=== PATIENT | female | born 1970 | race Hispanic/Latino ===

== ENCOUNTER → 2016-07-09 | Outpatient (CLI) | payer BC ==
--- NOTE | 2016-07-09 10:19 | US ---
EXAMINATION: Right upper quadrant ultrasound HISTORY: Pain COMPARISON: None TECHNIQUE: Grayscale and color Doppler images obtained of the right upper quadrant FINDINGS: The liver is moderately increased in generalized echotexture without a focal hepatic mass. The pancreas is not well characterized. The gallbladder wall thickness is mildly increased however the gallbladder is decompressed. No shadowing stones or pericholecystic fluid. The common bile duct measures 2 mm. The right kidney measures 12.8 cm [id number] without evidence of hydronephrosis. So nographic Palafox sign is not reported. IMPRESSION: 1. At least moderate fatty infiltration of the liver. 2. Decompressed gallbladder without evidence of gallstones.
== END ==
LOC: MW.US 08:37
PROVIDERS: ATTEND Surgery
DX: R10.9 Unspecified abdominal pain (principal); K76.0 Fatty (change of) liver, not elsewhere classified
CPT/HCPCS: 76705; 76705-26

== ENCOUNTER 2016-07-17 06:20 | Day surgery (SDC) | payer BC ==
[~2016-07-17 06:20] MED LIST: Lactated Ringers 1,000 ML IV SCH
--- NOTE | 2016-07-17 07:25 | PCM.PREANE ---
Preanesthetic Assessment - Anesthesia/Transfusion/Family Hx Anesthesia History: Prior Anesthesia Without Reaction Family History of Anesthesia Reaction: No Transfusion History: No Prior Transfusion(s) Intubation History: Unknown - Review of Systems General: No Symptoms Pulmonary: No Symptoms Cardiovascular: Other (HTN - treated) Gastrointestinal: Abdominal pain (intermittent), Melena, Other (Hx of H.Pylori) Neurological: Headache (migraine), Other (vertigo occasionally) Other: Reports: Diabetes (Type II, on metformin) - Physical Assessment NPO Status Date: 07/16/16 NPO Status Time: 23:00 O2 Sat by Pulse Oximetry: 97 Respiratory Rate: 84 Vital Signs: Last Vital Signs Temp 97.5 F 07/17/16 06:55 Pulse 84 07/17/16 06:55 Resp 84 H 07/17/16 06:55 BP 144/78 H 07/17/16 06:55 Pulse Ox 97 07/17/16 06:55 Height: 5 ft 1 in Weight: 200 lb ASA Class: 3 Mental Status: Alert & Oriented x3 Dentition: Reports: Normal Dentition, Dentures (upper) Thyro-Mental Finger Breadths: 3 Mouth Opening Finger Breadths: 3 ROM/Head Extension: Full Lungs: Clear to auscultation, Normal respiratory effort Cardiovascular: Regular Rate, Regular Rhythm, No Murmurs - Lab Values: Laboratory Last Values Urine HCG, Qual NEGATIVE (NEGATIVE) 07/17/16 06:30 - Allergies Allergies/Adverse Reactions: Allergies Allergy/AdvReac Type Severity Reaction Status Date / Time No Known Allergies Allergy Verified 01/14/15 08:03 - Blood Blood Available: No Product(s) Available: None - Anesthesia Plan Pre-Op Medication Ordered: None - Acknowledgements Anesthesia Type Planned: MAC Pt an Appropriate Candidate for the Planned Anesthesia: Yes Alternatives and Risks of Anesthesia Discussed w Pt/Guardian: Yes Pt/Guardian Understands and Agrees with Anesthesia Plan: Yes PreAnesthesia Questionnaire HEENT History: Reports: Other (see below) Other HEENT History: top denture, bottom partial Cardiovascular History: Reports: High cholesterol, Hypertension Gastrointestinal History: Reports: GERD Musculoskeletal History: Reports: Arthritis Neurological History: Reports: Migraines Endocrine/Metabolic History: Reports: Diabetes, type II, Obesity/BMI 30+ - Past Surgical History Head Surgeries/Procedures: Reports: None Musculoskeletal Surgical History: Reports: Other (see below) Other Musculoskeletal Surgeries/Procedures:: knee surgery - SUBSTANCE USE Smoking Status *Q: Current Every Day Smoker Tobacco Use Within Last Twelve Months: Cigarettes Second Hand Smoke Exposure: Yes Days Per Week of Alcohol Use: 7 Number of Drinks Per Day: 12 Total Drinks Per Week: 84 Recreational Drug Use History: No - HOME MEDS Home Medications: Home Meds metFORMIN [Glucophage] 500 mg PO ACBREAKFAST 01/04/14 [History] atorvaSTATin [Lipitor] 20 mg PO BEDTIME 01/14/15 [History] Acetaminophen 1 tab PO ASDIRECTED PRN 07/13/16 [History] Ibuprofen 400 mg PO ASDIRECTED PRN 07/13/16 [History] Meclizine HCl 25 mg PO ASDIRECTED PRN 07/13/16 [History] [place]-3S/DHA/Epa/Fish Oil [[place]-3 Fish Oil 1,000 mg Sfgl] 1,000 mg PO DAILY 07/25 [History] Omeprazole 40 mg PO DAILY 07/13/16 [History] Acetaminophen/Butalbital/Caff [Fioricet 325-50-40 MG] 1 tab PO ASDIRECTED PRN [History] Losartan Potassium 100 mg PO DAILY 07/16/16 [History] metFORMIN HCl [Metformin HCl ER] 1,000 mg PO ACDINNER 07/16/16 [History] - CURRENT (IN HOUSE) MEDS Current Meds: Current Medications Lactated Ringer's (Ringers, Lactated) 1,000 mls @ 125 mls/hr IV ASDIRECTED RAY Last Admin: 07/17/16 06:54 Dose: 125 mls/hr
[2016-07-17] MEDS ORDERED: Midazolam 1 MG/ML 2 ML SDV ONE (07:28)
[2016-07-17] MEDS ORDERED: fentaNYL 100 MCG/2 ML SDV ONE (07:28)
[2016-07-17] MEDS ORDERED: Propofol 200 MG/20 ML SDV ONE (07:28)
[2016-07-17] MEDS ORDERED: Lidocaine 2% 5 ML SDV ONE (07:28)
--- NOTE | 2016-07-17 08:26 | PCM.OPNOTE ---
- General Post-Op/Procedure Note Date of Surgery/Procedure: 07/17/16 Operative Procedure(s): egd w bx. colonoscopy Findings: see dict [id number] Pre Op Diagnosis: gib Post-Op Diagnosis: gastritis and diverticulosis Anesthesia Technique: Moderate sedation Primary Surgeon: William Blevins Pathology: sent Complications: None Condition: Good
--- NOTE | 2016-07-17 09:01 | PCM.POSTAN ---
POST ANESTHESIA ASSESSMENT - MENTAL STATUS Mental Status: alert, oriented - RESPIRATORY Respiratory Status: respiratory rate WNL, airway patent, O2 saturation stable - CARDIOVASCULAR CV Status: pulse rate WNL, blood pressure stable - GASTROINTESTINAL GI Status: no symptoms - POST OP HYDRATION Hydration Status: adequate & stable - OBSERVATIONS Free Text/Narrative:: no anesthesia problems
[2016-07-17 10:00] VITALS: BP 106/52
--- NOTE | 2016-07-17 15:56 | OR ---
SURGEON: William Blevins MD DATE OF PROCEDURE: 07/17/2016 PREOPERATIVE DIAGNOSIS: Gastrointestinal bleeding. POSTOPERATIVE DIAGNOSES: EGD diagnosis is gastritis and colonoscopy diagnosis is diverticulosis. PROCEDURES PERFORMED: 1. EGD with biopsy. 2. Colonoscopy. DESCRIPTION OF PROCEDURE: EGD: The patient was taken to the endoscopy room, and with the DIE CASTING MACHINE MAINTAINER, Diprivan was administered. A well-lubricated EGD scope was gently inserted through the oropharynx, down the esophagus, passing through the gastroesophageal junction, into the stomach. The mucosa was examined upon the passage. Any etiology will be noted. Once in the stomach, we continued to advance to the distal antrum, passed through the pylorus into the second portion of the duodenum. Again, the mucosa was examined for any abnormality and etiology. The scope was then retrieved back to the stomach and then retroflexed to look at the fundus of the stomach. If a biopsy was indicated, we will biopsy the antrum, body, and gastroesophageal junction. The air will be sucked out while the scope is retrieved to reduce the patient's discomfort. The patient tolerated the procedure well. There were no intraoperative complications. Dr. Blevins was present through the whole procedure. Prior to surgery, a time-out had been called, the patient identified, procedure identified and antibiotic administered. Colonoscopy: The patient was taken to the endoscopy room. A time out was called, patient identified, and procedure identified. Diprivan was then administrated. Patient went from awake to sleep, hearing doctor talking or door closing is normal. Perineum inspection and digital examination were then performed. A well-lubricated colonoscope was gently inserted through the rectum, advanced past the rectosigmoid junction, the descending colon, splenic flexure, transverse colon, hepatic flexure, ascending colon, arrived to the cecum. Cecum was identified as dictated in the finding. Then the scope was carefully withdrawn while attention was paid to the mucosal surface for any abnormality. Air will be sucked out during the scope withdrawal. At the rectum, retroflexed to examine any rectal diseases, fistula or hemorrhoids. Patient tolerated procedure well. There were no intraoperative complications, and Dr. Blevins was present throughout the whole procedure. FINDINGS: EGD Findings: The patient was easily sedated with DIE CASTING MACHINE MAINTAINER and Diprivan. The patient was soundly snoring. Oropharynx and proximal esophagus were free of disease, stricture, or inflammation. Proximal esophagus has a ring-like structure, has Schatzki ring observed with salmon-color change consistent with acid reflux. Stomach rugae is normal in appearance. There were no blood, bile, or food particle. Antrum was a little bit inflamed and duodenum was grossly normal in appearance. The scope was retrieved back to the stomach. Retroflex look at the fundus of stomach, there was no hiatal hernia. Biopsy done at antrum, body, and GE junction at 30, and suck out of air while scope pulling out. Colonoscopy Findings: The patient was easily sedated with DIE CASTING MACHINE MAINTAINER and Diprivan. The patient was soundly snoring. The patient's bowel prep was large amount of liquid stool compromising the study and no semi-formed stool. Colon was rather straight forward. Cecum indicated by ileocecal fold and one-to-one indentation. Light emittance was not observed. Appendiceal orifice was observed. Mucosa was examined upon scope pulling out with constant irrigation because of the bowel prep. The patient has mild diverticulosis in the left colon. No signs or symptoms of diverticulitis. Inflammation, stricture, ulceration, bleeding, mass growth, polyp, AV malformation, none of these observed. The patient has mild internal hemorrhoid with a pretty significant external hemorrhoid. No fissure or other rectal diseases observed. The patient will benefit from repeat colonoscopy 10 years from today or if clinically indicated otherwise. As always, thank you for the kind referral. ROCAEL SEE /[id number]
== END 2016-07-17 09:10 | disposition home or self-care (01) ==
LOC: MW.SDS 06:20
PROVIDERS: ATTEND Surgery
DX: K29.51 Unspecified chronic gastritis with bleeding (principal); A04.8 Other specified bacterial intestinal infections; K57.30 Diverticulosis of large intestine without perforation or abscess without bleeding; K21.9 Gastro-esophageal reflux disease without esophagitis; I10 Essential (primary) hypertension; E66.9 Obesity, unspecified; E11.9 Type 2 diabetes mellitus without complications; G43.009 Migraine without aura, not intractable, without status migrainosus; F10.10 Alcohol abuse, uncomplicated; M19.90 Unspecified osteoarthritis, unspecified site; F17.210 Nicotine dependence, cigarettes, uncomplicated; Z79.84 Long term (current) use of oral hypoglycemic drugs; Z79.899 Other long term (current) drug therapy; Z98.890 Other specified postprocedural states; Z82.49 Family history of ischemic heart disease and other diseases of the circulatory system
CPT/HCPCS: 43239; 45378; 81025; 82962; 88305; 88312; J2250; J3010; J7120; 00740; J2704

== ENCOUNTER 2016-11-26 06:13 | Observation (INO) | payer BC ==
[2016-11-26] MEDS ORDERED: Aspirin 81 MG Tab.Chew PO ONE (06:22)
--- NOTE | 2016-11-26 06:23 | EDM.PDOC ---
ED HPI GENERAL MEDICAL PROBLEM - General Chief Complaint: Chest Pain Stated Complaint: CHEST PAIN Time Seen by Provider: 11/26/16 06:14 - History of Present Illness INITIAL COMMENTS - FREE TEXT/NARRATIVE: HISTORY AND PHYSICAL: History of present illness: Patient 46-year-old female with history of diabetes hypertension who is a smoker sensory concern chest pain that awoke her from sleep last approximate 3 minutes and was associated with palpitations and diaphoresis upon arrival here she is asymptomatic she denies trauma or other concern Review of systems: As per history of present illness and below otherwise all systems reviewed and negative. Past medical history: As per history of present illness and as reviewed below otherwise noncontributory. Surgical history: As per history of present illness and as reviewed below otherwise noncontributory. Social history: No reported history of drug or alcohol abuse. Family history: As per history of present illness and as reviewed below otherwise noncontributory. Physical exam: HEENT: Atraumatic, normocephalic, pupils reactive, negative for conjunctival pallor or scleral icterus, mucous membranes moist, throat clear, neck supple, nontender, trachea midline. Lungs: Clear to auscultation, breath sounds equal bilaterally, chest nontender. Heart: S1S2, regular, negative for clicks, rubs, or JVD. Abdomen: Soft, nondistended, nontender. Negative for masses or hepatosplenomegaly. Negative for costovertebral tenderness. Pelvis: Stable nontender. Genitourinary: Deferred. Rectal: Deferred. Extremities: Atraumatic, negative for cords or calf pain. Neurovascular unremarkable. Neuro: Awake, alert, oriented. Cranial nerves II through XII unremarkable. Cerebellum unremarkable. Motor and sensory unremarkable throughout. Exam nonfocal. Diagnostics: CBC CMP troponin PT/INR chest x-ray EKG Therapeutics: IV O2 monitor aspirin 324 mg by mouth Impression: #1 chest pain #2 history diabetes #3 history of hypertension Definitive disposition and diagnosis as appropriate pending reevaluation and review of above. - Related Data Allergies Allergy/AdvReac Type Severity Reaction Status Date / Time No Known Allergies Allergy Verified 11/26/16 06:20 Home Meds: Home Meds metFORMIN [Glucophage] 500 mg PO BID 01/04/14 [History] atorvaSTATin [Lipitor] 20 mg PO BEDTIME 01/14/15 [History] Ibuprofen 400 mg PO ASDIRECTED PRN 07/13/16 [History] Meclizine HCl 25 mg PO ASDIRECTED PRN 07/13/16 [History] [place]-3S/DHA/Epa/Fish Oil [[place]-3 Fish Oil 1,000 mg Sfgl] 1,000 mg PO DAILY 07/25 [History] Omeprazole 40 mg PO DAILY 07/13/16 [History] Acetaminophen/Butalbital/Caff [Fioricet 325-50-40 MG] 1 tab PO ASDIRECTED PRN [History] Losartan Potassium 100 mg PO DAILY 07/16/16 [History] Past Medical History HEENT History: Reports: Other (See Below) Other HEENT History: top denture, bottom partial Cardiovascular History: Reports: High Cholesterol, Hypertension Gastrointestinal History: Reports: GERD Musculoskeletal History: Reports: Arthritis Neurological History: Reports: Migraines Endocrine/Metabolic History: Reports: Diabetes, Type II, Obesity/BMI 30+ - Past Surgical History Musculoskeletal Surgical History: Reports: Other (See Below) Social & Family History - Tobacco Use Smoking Status *Q: Current Some Day Smoker Years of Tobacco use: 10 Packs/Tins Daily: 1 Used Tobacco, but Quit: No Month Tobacco Last Used: smokes 3 cigarettes per day Second Hand Smoke Exposure: Yes - Alcohol Use Days Per Week of Alcohol Use: 7 Number of Drinks Per Day: 12 Total Drinks Per Week: 84 - Recreational Drug Use Recreational Drug Use: No ED ROS GENERAL - Review of Systems Review Of Systems: ROS reveals no pertinent complaints other than HPI. ED EXAM, GENERAL - Physical Exam Exam: See Below (See dictation) Course - Vital Signs Last Recorded V/S: Last Vital Signs Temp 36 C 11/26/16 06:21 Pulse 95 11/26/16 06:21 Resp 18 11/26/16 06:21 BP 145/95 H 11/26/16 06:21 Pulse Ox 96 11/26/16 06:21 - Orders/Labs/Meds Orders: Active Orders 24 hr Category Date Time Status EKG Documentation Completion [RC] STAT Care 11/26/16 06:22 Active Chest 1V Frontal [CR] Stat Exams 11/26/16 06:22 Taken Labs: Laboratory Tests 11/26/16 11/26/16 11/26/16 Range/Units 06:25 06:25 06:25 WBC 12.62 H (4.0-11.0) K/uL RBC 4.66 (4.30-5.90) M/uL Hgb 13.6 (12.0-16.0) g/dL Hct 40.4 (36.0-46.0) % MCV 86.7 (80.0-98.0) fL MCH 29.2 (27.0-32.0) pg MCHC 33.7 (31.0-37.0) g/dL RDW Std Deviation 46.2 (28.0-62.0) fl RDW Coeff of Ludwig 15 (11.0-15.0) % Plt Count 296 (150-400) K/uL MPV 10.40 (7.40-12.00) fL Neut % (Auto) 56.7 (48.0-80.0) % Lymph % (Auto) 27.4 (16.0-40.0) % Ralls % (Auto) 10.2 (0.0-15.0) % Eos % (Auto) 5.4 (0.0-7.0) % Baso % (Auto) 0.3 (0.0-1.5) % Neut # (Auto) 7.2 H (1.4-5.7) K/uL Lymph # (Auto) 3.5 H (0.6-2.4) K/uL Ralls # (Auto) 1.3 H (0.0-0.8) K/uL Eos # (Auto) 0.7 (0.0-0.7) K/uL Baso # (Auto) 0.0 (0.0-0.1) K/uL Nucleated RBC % 0.0 /100WBC Nucleated RBCs # 0 K/uL Sodium 136 (136-146) mmol/L Potassium 4.0 (3.5-5.1) mmol/L Chloride 106 (98-110) mmol/L Carbon Dioxide 20 L (21-31) mmol/L BUN 17 (6.0-23.0) mg/dL Creatinine 0.9 (0.6-1.5) mg/dL Est Cr Clr Drug Dosing 58.94 mL/min Estimated GFR (MDRD) > 60.0 ml/min Glucose 148 H (60-110) mg/dL Calcium 9.3 (8.8-10.8) mg/dL Total Bilirubin 0.4 (0.1-1.5) mg/dL AST 18 (5-40) IU/L ALT 26 (8-54) IU/L Alkaline Phosphatase 40 (40-150) CK-MB (CK-2) 3.4 (0-6.6) ng/ml Troponin I < 0.10 (0.0-0.29) NG/ML Total Protein 7.6 (6.0-8.0) g/dL Albumin 4.1 (3.5-5.0) g/dL Globulin 3.5 (2.0-3.5) g/dL Albumin/Globulin Ratio 1.2 L (1.3-2.8) HCG, Qual (NEG) 11/26/16 Range/Units 06:25 WBC (4.0-11.0) K/uL RBC (4.30-5.90) M/uL Hgb (12.0-16.0) g/dL Hct (36.0-46.0) % MCV (80.0-98.0) fL MCH (27.0-32.0) pg MCHC (31.0-37.0) g/dL RDW Std Deviation (28.0-62.0) fl RDW Coeff of Ludwig (11.0-15.0) % Plt Count (150-400) K/uL MPV (7.40-12.00) fL Neut % (Auto) (48.0-80.0) % Lymph % (Auto) (16.0-40.0) % Ralls % (Auto) (0.0-15.0) % Eos % (Auto) (0.0-7.0) % Baso % (Auto) (0.0-1.5) % Neut # (Auto) (1.4-5.7) K/uL Lymph # (Auto) (0.6-2.4) K/uL Ralls # (Auto) (0.0-0.8) K/uL Eos # (Auto) (0.0-0.7) K/uL Baso # (Auto) (0.0-0.1) K/uL Nucleated RBC % /100WBC Nucleated RBCs # K/uL Sodium (136-146) mmol/L Potassium (3.5-5.1) mmol/L Chloride (98-110) mmol/L Carbon Dioxide (21-31) mmol/L BUN (6.0-23.0) mg/dL Creatinine (0.6-1.5) mg/dL Est Cr Clr Drug Dosing mL/min Estimated GFR (MDRD) ml/min Glucose (60-110) mg/dL Calcium (8.8-10.8) mg/dL Total Bilirubin (0.1-1.5) mg/dL AST (5-40) IU/L ALT (8-54) IU/L Alkaline Phosphatase (40-150) CK-MB (CK-2) (0-6.6) ng/ml Troponin I (0.0-0.29) NG/ML Total Protein (6.0-8.0) g/dL Albumin (3.5-5.0) g/dL Globulin (2.0-3.5) g/dL Albumin/Globulin Ratio (1.3-2.8) HCG, Qual NEGATIVE (NEG) Meds: Medications Discontinued Medications Generic Name Dose Route Start Last Admin Trade Name Darylq PRN Reason Stop Dose Admin Aspirin 324 mg 11/26/16 06:22 11/26/16 06:27 Aspirin PO 11/26/16 06:23 324 mg ONETIME ONE Administration Departure - Departure Time of Disposition: 07:48 Disposition: Refer to Observation Condition: Good Clinical Impression: Chest pain - Discharge Information Referrals: PCP,None [Primary Care Provider] - Forms: ED Department Discharge - My Orders Last 24 Hours: My Active Orders 11/26/16 06:22 EKG Documentation Completion [RC] STAT Chest 1V Frontal [CR] Stat - Assessment/Plan Last 24 Hours: My Active Orders 11/26/16 06:22 EKG Documentation Completion [RC] STAT Chest 1V Frontal [CR] Stat
[2016-11-26 07:00] LABS: CHLORIDE,CL 106 mmol/L (98-110); SODIUM,NA 136 mmol/L (136-146)
[2016-11-26] MEDS ORDERED: Azithromycin 250 MG Tab PO SCH (12:00)
[2016-11-26] MEDS: Albuterol/Ipratropium 3.0-0.5 MG/3 ML Neb Soln NEB SCH ×4 (14:43→22:05)
--- NOTE | 2016-11-26 16:47 | CR ---
EXAM DATE: 11/26/16 PATIENT'S AGE: 46 Patient: KAT CAMARA Facility: [place], [place] Site . Site : 1970 Study: XRay Chest [id number]/18/2017 6:42:47 AM Ordering Physician: Maria Teresa Sands Final Report: INDICATION: CHEST PAIN COMPARISON: Chest x-ray dated 28 August 2016. FINDINGS: A single portable chest x-ray shows a normal cardiac silhouette. The lungs show no focal pulmonary opacities. Sharp pleural margins. No pneumothorax. IMPRESSION: No evidence of acute pulmonary abnormalities. Dictated by Gregory Bob MD @ 11/26/2016 7:13:01 AM Dictated by: Gregory Bob MD @ 11/26/2016 07:13:08 (Electronic Signature) Report Signed by Proxy. [facility]
--- NOTE | 2016-11-26 17:22 | PCM.HP ---
H&P History of Present Illness - General Date of Service: 11/26/16 Admit Problem/Dx: Admission Diagnosis/Problem Admission Diagnosis/Problem Chest pain Source of Information: Patient, Provider - History of Present Illness Initial Comments - Free Text/Narative: She presented to the ED with chest pain and dyspnea. She has been coughing. She smokes She drinks beer daily ; sometimes 12 cans/day She has DM but does not see a doctor and does not check her blood sugars. chest pain Pain Score (Numeric/FACES): 4 - Related Data Allergies/Adverse Reactions: Allergies Allergy/AdvReac Type Severity Reaction Status Date / Time No Known Allergies Allergy Verified 11/26/16 06:20 Home Medications: Home Meds metFORMIN [Glucophage] 500 mg PO BID 01/04/14 [History] atorvaSTATin [Lipitor] 20 mg PO BEDTIME 01/14/15 [History] Ibuprofen 400 mg PO ASDIRECTED PRN 07/13/16 [History] Meclizine HCl 25 mg PO ASDIRECTED PRN 07/13/16 [History] [place]-3S/DHA/Epa/Fish Oil [[place]-3 Fish Oil 1,000 mg Sfgl] 1,000 mg PO DAILY 07/25 [History] Omeprazole 40 mg PO DAILY 07/13/16 [History] Acetaminophen/Butalbital/Caff [Fioricet 325-50-40 MG] 1 tab PO ASDIRECTED PRN [History] Losartan Potassium 100 mg PO DAILY 07/16/16 [History] Past Medical History HEENT History: Reports: Other (See Below) Other HEENT History: top denture, bottom partial Cardiovascular History: Reports: High Cholesterol, Hypertension Respiratory History: Reports: None Gastrointestinal History: Reports: GERD Genitourinary History: Reports: None [employer] History: Reports: Musculoskeletal History: Reports: Arthritis Neurological History: Reports: Migraines Psychiatric History: Reports: None Endocrine/Metabolic History: Reports: Diabetes, Type II, Obesity/BMI 30+ Hematologic History: Reports: None Immunologic History: Reports: None Oncologic (Cancer) History: Reports: None Dermatologic History: Reports: None - Infectious Disease History Infectious Disease History: Reports: None - Past Surgical History Head Surgeries/Procedures: Reports: None Musculoskeletal Surgical History: Reports: Other (See Below) Social & Family History - Family History Family Medical History: Noncontributory - Tobacco Use Smoking Status *Q: Current Every Day Smoker Years of Tobacco use: 30 Packs/Tins Daily: 0.5 Used Tobacco, but Quit: No Month Tobacco Last Used: smokes 3 cigarettes per day Second Hand Smoke Exposure: Yes - Caffeine Use Caffeine Use: Reports: Soda - Alcohol Use Days Per Week of Alcohol Use: 3 Number of Drinks Per Day: 12 Total Drinks Per Week: 36 Date of Last Drink: 09/24/16 Time of Last Drink: 21:30 - Recreational Drug Use Recreational Drug Use: No H&P Review of Systems - Review of Systems: Review Of Systems: See Below General: Denies: Fever, Chills HEENT: Denies: Dysphasia Pulmonary: Reports: Shortness of Breath, Wheezing, Cough Cardiovascular: Reports: Chest Pain (intermittent tightness). Denies: Edema Gastrointestinal: Denies: Abdominal Pain, Difficulty Swallowing, Hematemesis, Hematochezia, Melena Genitourinary: Denies: Dysuria, Frequency, Hematuria, Retention Psychiatric: Denies: Confusion Exam - Exam Exam: See Below - Vital Signs Vital Signs: Last Vital Signs Temp 97.7 F 11/26/16 16:38 Pulse 88 11/26/16 16:38 Resp 20 11/26/16 16:38 BP 162/72 H 11/26/16 16:38 Pulse Ox 95 11/26/16 16:38 Weight: 92.4 kg - Exam General: Alert, Oriented, Cooperative HEENT: EOMI, Mucosa Moist & [place] Neck: Supple, Trachea Midline, Lymphadenopathy Lungs: Normal Respiratory Effort, Wheezing (faint intermittent end expiratory wheezing). No: Clear to Auscultation GI/Abdominal Exam: Soft, Non-Tender Rectal (Female) Exam: Deferred Extremities: No Pedal Edema Neurological: Cranial Nerves Intact, Normal Speech Psychiatric: Normal Affect (EKG : NSR; no ischemic changes were noted.) - Patient Data Lab Results Last 24 hrs: Laboratory Results - last 24 hr 11/26/16 11/26/16 Range/Units 12:05 12:12 POC Glucose 160 H (60-110) mg/dL Troponin I < 0.10 (0.0-0.29) NG/ML Result Diagrams: 11/26/16 06:25 11/26/16 06:25 *Q Meaningful Use (ADM) - VTE *Q VTE Criteria *Q: - Stroke *Q Stroke Criteria *Q: - AMI *Q AMI Criteria *Q: - Problem List (1) Bronchitis SNOMED Code(s): 46949360 ICD Code: J40 - BRONCHITIS, NOT SPECIFIED ACUTE OR CHRONIC Status: Acute Current Visit: Yes (2) Bronchospasm with bronchitis, acute SNOMED Code(s): 46010452 ICD Code: J20.9 - ACUTE BRONCHITIS, UNSPECIFIED Status: Acute Current Visit: Yes (3) Chest pain SNOMED Code(s): 34424253 ICD Code: R07.9 - CHEST PAIN, UNSPECIFIED Status: Acute Current Visit: Yes Onset Date: 02/06/14 Problem List Initiated/Reviewed/Updated: Yes Orders Last 24hrs: Active Orders 24 hr Category Date Time Status Accu Check [Blood Glucose Check, Bedside] [] Care 11/26/16 11:56 Active QIDACANDBED RT Aerosol Therapy [RC] ASDIRECTED Care 11/26/16 11:57 Active Telemetry Monitoring [Cardiac Monitoring] [RC] . Care 11/26/16 08:17 Active DIRECTED [employer] Diet [DIET] Diet 11/26/16 Lunch Active TROPONIN I [CHEM] Q6H Lab 11/26/16 18:25 Ordered Albuterol/Ipratropium [DuoNeb 3.0-0.5 MG/3 ML] Med 11/26/16 12:00 Active 3 ml NEB Q4HRRT Azithromycin [Zithromax] Med 11/26/16 12:00 Active 500 mg PO Q24H Medication Orders Albuterol/Ipratropium (Duoneb 3.0-0.5 Mg/3 Ml) 3 ml NEB Q4HRRT [facility] Last Admin: 11/26/16 14:44 Dose: 3 ml Admin: 11/26/16 14:43 Dose: 3 ml Azithromycin (Zithromax) 500 mg PO Q24H [facility] Last Admin: 11/26/16 12:09 Dose: 500 mg Assessment/Plan Comment:: 11/26/2016 admit to observation troponins possible discharge later today antibiotics nebulizers see orders. Michael Chapman MD
[2016-11-26] MEDS ORDERED: Acetaminophen 325 MG Tab PO PRN (17:23)
[2016-11-26] MEDS ORDERED: Sodium Chloride 0.9% 2.5 ML Syringe FLUSH PRN (17:23)
[2016-11-26] MEDS ORDERED: Temazepam 15 MG Cap PO PRN (17:23)
[2016-11-26] MEDS ORDERED: Sodium Chloride 0.9% 10 ML Syringe FLUSH PRN (17:23)
[2016-11-26] MEDS ORDERED: predniSONE 20 MG Tab PO SCH (17:30)
--- NOTE | 2016-11-26 20:30 | PCM.DCSUM1 ---
Discharge Summary - Hospital Course Brief History: she was admitted with cough and chest pressure. - Discharge Data Discharge Date: 11/26/16 Discharge Disposition: Home, Self-Care 01 Condition: Fair - Discharge Diagnosis/Problem(s) (1) Bronchitis SNOMED Code(s): 99014349 ICD Code: J40 - BRONCHITIS, NOT SPECIFIED ACUTE OR CHRONIC Status: Acute Current Visit: Yes (2) Bronchospasm with bronchitis, acute SNOMED Code(s): 66704942 ICD Code: J20.9 - ACUTE BRONCHITIS, UNSPECIFIED Status: Acute Current Visit: Yes (3) Chest pain SNOMED Code(s): 89870449 ICD Code: R07.9 - CHEST PAIN, UNSPECIFIED Status: Acute Current Visit: Yes Onset Date: 02/06/14 - Patient Summary/Data Hospital Course: EKG did not reveal any ischemic changes. CXR was normal. Troponins were normal. She was started on azithromycin, prednisone and beta agonist therapy. At discharge she feels better and her lungs are CTA Her blood pressure was elevated but she missed her antihypertensive medicine today. I advised regarding decreasing gradually her ETOH intake to one or fewer beers per day and we discussed smoking cessation. Impression bronchitis with bronchospasm HTN DM smoker high alcohol use follow up with a primary care provider ivan prednisone 40 mg daily x four days albuterol hfa prn P MD Ari - Discharge Plan Home Medications: Home Meds metFORMIN [Glucophage] 500 mg PO BID 01/04/14 [History] atorvaSTATin [Lipitor] 20 mg PO BEDTIME 01/14/15 [History] Ibuprofen 400 mg PO ASDIRECTED PRN 07/13/16 [History] Meclizine HCl 25 mg PO ASDIRECTED PRN 07/13/16 [History] Buras-3S/DHA/Epa/Fish Oil [Buras-3 Fish Oil 1,000 mg Sfgl] 1,000 mg PO DAILY 07/25 [History] Omeprazole 40 mg PO DAILY 07/13/16 [History] Acetaminophen/Butalbital/Caff [Fioricet 325-50-40 MG] 1 tab PO ASDIRECTED PRN [History] Losartan Potassium 100 mg PO DAILY 07/16/16 [History] Forms: ED Department Discharge Referrals: PCP,None [Primary Care Provider] - - Patient Data Vitals - Most Recent: Last Vital Signs Temp 97.7 F 09/18/17 16:38 Pulse 88 11/26/16 16:38 Resp 20 11/26/16 16:38 BP 162/72 H 11/26/16 16:38 Pulse Ox 95 11/26/16 17:23 Weight - Most Recent: 92.4 kg I&O - Last 24 hours: Intake & Output 11/26/16 11/26/16 11/26/16 06:59 14:59 22:59 Intake Total 750 Output Total 300 Balance 450 Lab Results - Last 24 hrs: Laboratory Results - last 24 hr 11/26/16 11/26/16 11/26/16 Range/Units 12:05 12:12 18:33 POC Glucose 160 H (60-110) mg/dL Troponin I < 0.10 < 0.10 (0.0-0.29) NG/ML Med Orders - Current: Current Medications Acetaminophen (Tylenol) 650 mg PO Q4H PRN PRN Reason: Pain (Mild 1-3)/fever Last Admin: 11/26/16 17:38 Dose: 650 mg Albuterol/Ipratropium (Duoneb 3.0-0.5 Mg/3 Ml) 3 ml NEB Q4HRRT [facility] Last Admin: 11/26/16 19:14 Dose: Not Given Atorvastatin Calcium (Lipitor) 20 mg PO BEDTIME RAY Azithromycin (Zithromax) 500 mg PO Q24H [facility] Last Admin: 11/26/16 12:09 Dose: 500 mg Fish Oil (Fish Oil) 1 gm PO DAILY [facility] Metformin HCl (Glucophage) 500 mg PO BID [facility] Prednisone (Prednisone) 40 mg PO DAILY [facility] Last Admin: 11/26/16 17:37 Dose: 40 mg Sodium Chloride (Saline Flush) 10 ml FLUSH ASDIRECTED PRN PRN Reason: Keep Vein Open Sodium Chloride (Saline Flush) 2.5 ml FLUSH ASDIRECTED PRN PRN Reason: Keep Vein Open Temazepam (Restoril) 15 mg PO BEDTIME PRN PRN Reason: Sleep Discontinued Medications Aspirin (Aspirin) 324 mg PO ONETIME ONE Stop: 11/26/16 06:23 Last Admin: 11/26/16 06:27 Dose: 324 mg *Q Meaningful Use (DIS) - VTE *Q VTE Criteria *Q: - Stroke *Q Stroke Criteria *Q: - AMI *Q AMI Criteria *Q:
[2016-11-26] MEDS ORDERED: atorvaSTATin 20 MG Tab PO SCH (21:00)
[2016-11-26] MEDS ORDERED: metFORMIN 500 MG Tab PO SCH (21:00)
[2016-11-26 22:33] VITALS: BP 140/91
[2016-11-27] MEDS ORDERED: Fish Oil/Omega-3 Fatty Acids 1 Gm Cap PO SCH (09:00)
== END 2016-11-26 21:42 | disposition home or self-care (01) ==
LOC: MW.ED 06:13 → MW.MS 07:50
PROVIDERS: ADMIT Family Medicine; ATTEND Family Medicine
DX: R07.9 Chest pain, unspecified (principal); J40 Bronchitis, not specified as acute or chronic; J20.9 Acute bronchitis, unspecified; Z79.84 Long term (current) use of oral hypoglycemic drugs; Z79.1 Long term (current) use of non-steroidal anti-inflammatories (NSAID); Z79.899 Other long term (current) drug therapy; E78.00 Pure hypercholesterolemia, unspecified; I10 Essential (primary) hypertension; K21.9 Gastro-esophageal reflux disease without esophagitis; M19.90 Unspecified osteoarthritis, unspecified site; G43.909 Migraine, unspecified, not intractable, without status migrainosus; E11.9 Type 2 diabetes mellitus without complications; E66.9 Obesity, unspecified; Z68.30 Body mass index [BMI] 30.0-30.9, adult; F17.210 Nicotine dependence, cigarettes, uncomplicated
CPT/HCPCS: 36415; 71010; 80053; 82553; 82962; 83036; 84484; 84703; 85025; 93005; 99285; A9270; G0378; 99283

== ENCOUNTER 2021-10-24 08:53 | Emergency (ER) | payer MEDICAID ==
[2021-10-24 11:40] VITALS: BP 155/96; PULSE 87
== END 2021-10-24 11:38 | disposition home or self-care (01) ==
LOC: MW.ED 08:53
DX: U07.1 COVID-19 (principal); I10 Essential (primary) hypertension; E78.00 Pure hypercholesterolemia, unspecified; K21.9 Gastro-esophageal reflux disease without esophagitis; E11.9 Type 2 diabetes mellitus without complications; E66.9 Obesity, unspecified; Z68.31 Body mass index [BMI] 31.0-31.9, adult; Z79.899 Other long term (current) drug therapy
CPT/HCPCS: 99284; U0002

== ENCOUNTER 2022-02-15 12:15 | Emergency (ER) | payer SELFPAY ==
[2022-02-15] MEDS ORDERED: Ondansetron 4 MG/2 ML SDV IVPUSH ONE (12:38)
[2022-02-15] MEDS ORDERED: Ketorolac 30 MG/ML SDV IVPUSH ONE (12:38)
[2022-02-15] MEDS ORDERED: Sodium Chloride 0.9% 1,000 ML IV ONE (12:38)
[2022-02-15 13:26] LABS: CORONAVIRUS COVID-19 NAA NEGATIVE (NEGATIVE); INFLUENZA A NAA NEGATIVE (NEGATIVE); INFLUENZA B NAA NEGATIVE (NEGATIVE); RESPIRATORY SYNCYTIAL VIR NAA NEGATIVE (NEGATIVE)
[2022-02-15 14:10] LABS: CARBON DIOXIDE,CO2 22.4 mmol/L (21.0-32.0); POTASSIUM,K 3.9 mmol/L (3.5-5.1)
[2022-02-15 14:20] VITALS: BP 140/73; PULSE 73
== END 2022-02-15 14:42 | disposition home or self-care (01) ==
LOC: MW.ED 12:15
DX: K52.9 Noninfective gastroenteritis and colitis, unspecified (principal); G43.909 Migraine, unspecified, not intractable, without status migrainosus; N28.9 Disorder of kidney and ureter, unspecified; E78.00 Pure hypercholesterolemia, unspecified; I10 Essential (primary) hypertension; E11.9 Type 2 diabetes mellitus without complications; E66.9 Obesity, unspecified; Z68.30 Body mass index [BMI] 30.0-30.9, adult; Z79.84 Long term (current) use of oral hypoglycemic drugs; Z79.899 Other long term (current) drug therapy; Z86.16 Personal history of COVID-19; Z20.822 Contact with and (suspected) exposure to COVID-19
CPT/HCPCS: 0241U; 36415; 71045; 80053; 84484; 85025; 93005; 96361; 96374; 96375; 99284; J1885; J2405; J7030

== ENCOUNTER 2023-11-21 10:56 | Emergency (ER) | payer SELFPAY ==
[2023-11-21] MEDS ORDERED: Nitroglycerin 0.4 MG Tab.SL SL PRN (11:06)
[2023-11-21] MEDS ORDERED: Sodium Chloride 0.9% 10 ML Syringe FLUSH PRN (11:06)
[2023-11-21] MEDS: Losartan 50 MG Tab PO ONE (11:19)
[2023-11-21] MEDS: Aspirin 81 MG Tab.Chew PO ONE (11:20)
[2023-11-21] MEDS: Labetalol 100 MG/20 ML MDV IVPUSH ONE (11:21)
[2023-11-21 11:28] LABS: BASOPHILS ABSOLUTE AUTO 0.05 K/uL (0.00-0.20); BASOPHILS PERCENT AUTO 0.5 % (0.0-1.0); EOSINOPHILS ABSOLUTE AUTO 0.37 K/uL (0.00-0.45); EOSINOPHILS PERCENT AUTO 3.7 % (0.0-6.0); HEMATOCRIT 45.9 % (37.0-47.0); HEMOGLOBIN 14.8 g/dL (12.0-16.0); IMMATURE GRAN ABSOLUTE AUTO 0.02 K/uL (0.00-0.05); IMMATURE GRAN PERCENT AUTO 0.2 % (0.0-0.4); LYMPHOCYTES ABSOLUTE AUTO 3.03 K/uL (1.00-4.80); LYMPHOCYTES PERCENT AUTO 30.3 % (24.0-44.0); MEAN CORPUSCULAR HEMOGLOBIN 27.5 pg (28.0-32.0); MEAN CORPUSCULAR HGB CONC 32.2 g/dL (32.0-36.0); MEAN CORPUSCULAR VOLUME 85.3 fL (83.0-99.0); MEAN PLATELET VOLUME 11.2 fL (9.4-12.3); MONOCYTES ABSOLUTE AUTO 0.79 K/uL (0.00-0.80); MONOCYTES PERCENT AUTO 7.9 % (0.0-8.0); NEUTROPHILS ABSOLUTE AUTO 5.74 K/uL (1.80-7.70); NEUTROPHILS PERCENT AUTO 57.4 % (41.0-71.0); PLATELET COUNT,PLT 292 K/uL (150-400); RED BLOOD CELL COUNT 5.38 M/uL (4.10-5.30)
[2023-11-21 11:50] LABS: HEMOGLOBIN A1C 9.1 %
[2023-11-21 12:18] LABS: ALBUMIN 4.3 g/dL (3.4-5.0); BILIRUBIN TOTAL 0.5 mg/dL (0.2-1.0); CALCIUM 10.2 mg/dL (8.5-10.1); CARBON DIOXIDE,CO2 24.7 mmol/L (21.0-32.0); CREATININE 1.1 mg/dL (0.6-1.0); EST CRCL DRUG DOSING (CG) 46.78 mL/min; MAGNESIUM 1.4 mg/dL (1.8-2.4); POTASSIUM,K 4.2 mmol/L (3.5-5.1); PROTEIN TOTAL,TP 8.4 g/dL (6.4-8.2)
[2023-11-21 12:21] LABS: A/G RATIO 1.1 (0.9-1.6)
[2023-11-21 12:43] LABS: INR 0.99 (0.86-1.11)
[2023-11-21] MEDS: Sodium Chloride 0.9% 1,000 ML IV ONE (14:38)
[2023-11-21 15:07] VITALS: BP 156/94; PULSE 81
== END 2023-11-21 15:09 | disposition home or self-care (01) ==
LOC: MW.ED 10:56
DX: I15.2 Hypertension secondary to endocrine disorders (principal); E11.65 Type 2 diabetes mellitus with hyperglycemia; R07.9 Chest pain, unspecified; R53.1 Weakness; E78.00 Pure hypercholesterolemia, unspecified; K21.9 Gastro-esophageal reflux disease without esophagitis; E66.9 Obesity, unspecified; Z68.35 Body mass index [BMI] 35.0-35.9, adult; Z86.16 Personal history of COVID-19; Z79.84 Long term (current) use of oral hypoglycemic drugs; Z79.82 Long term (current) use of aspirin; Z79.899 Other long term (current) drug therapy; Z91.148 Patient's other noncompliance with medication regimen for other reason; Z75.8 Other problems related to medical facilities and other health care
CPT/HCPCS: 36415; 71045; 80053; 83036; 83690; 83735; 83880; 84484; 85025; 85610; 93005; 96374; 99285; A9270; J1921; J7030; 93010

== ENCOUNTER 2023-12-17 09:58 | Emergency (ER) | payer BC, OTHER ==
[2023-12-17] MEDS ORDERED: Sodium Chloride 0.9% 20 ML SDV IV PRN (10:25)
[2023-12-17] MEDS ORDERED: Sodium Chloride 0.9% 10 ML Syringe FLUSH PRN (10:25)
[2023-12-17] MEDS ORDERED: Sodium Chloride 0.9% 2.5 ML Syringe FLUSH PRN (10:25)
[2023-12-17] MEDS: Prochlorperazine 10 MG/2 ML SDV IVPUSH ONE (10:43)
[2023-12-17] MEDS: Ondansetron 4 MG/2 ML SDV IVPUSH ONE (10:43)
[2023-12-17] MEDS: Sodium Chloride 0.9% 1,000 ML IV ONE (10:43)
[2023-12-17] MEDS: diphenhydrAMINE 50 MG/ML SDV IVPUSH ONE (10:43)
[2023-12-17 10:46] LABS: BASOPHILS ABSOLUTE AUTO 0.04 K/uL (0.00-0.20); BASOPHILS PERCENT AUTO 0.5 % (0.0-1.0); EOSINOPHILS ABSOLUTE AUTO 0.51 K/uL (0.00-0.45); HEMATOCRIT 41.7 % (37.0-47.0); HEMOGLOBIN 13.6 g/dL (12.0-16.0); IMMATURE GRAN ABSOLUTE AUTO 0.02 K/uL (0.00-0.05); IMMATURE GRAN PERCENT AUTO 0.2 % (0.0-0.4); LYMPHOCYTES ABSOLUTE AUTO 2.56 K/uL (1.00-4.80); LYMPHOCYTES PERCENT AUTO 30.2 % (24.0-44.0); MEAN CORPUSCULAR HEMOGLOBIN 27.5 pg (28.0-32.0); MEAN CORPUSCULAR HGB CONC 32.6 g/dL (32.0-36.0); MEAN CORPUSCULAR VOLUME 84.2 fL (83.0-99.0); MEAN PLATELET VOLUME 10.6 fL (9.4-12.3); MONOCYTES ABSOLUTE AUTO 0.68 K/uL (0.00-0.80); NEUTROPHILS ABSOLUTE AUTO 4.67 K/uL (1.80-7.70); NEUTROPHILS PERCENT AUTO 55.1 % (41.0-71.0); PLATELET COUNT,PLT 287 K/uL (150-400); RED BLOOD CELL COUNT 4.95 M/uL (4.10-5.30); WHITE BLOOD CELL COUNT,WBC 8.48 K/uL (3.9-11.3)
[2023-12-17 11:35] LABS: A/G RATIO 0.9 (0.9-1.6); ALBUMIN 3.8 g/dL (3.4-5.0); BILIRUBIN TOTAL 0.3 mg/dL (0.2-1.0); CALCIUM 9.4 mg/dL (8.5-10.1); CARBON DIOXIDE,CO2 26.6 mmol/L (21.0-32.0); CREATININE 0.9 mg/dL (0.6-1.0); EST CRCL DRUG DOSING (CG) 54.55 mL/min; MAGNESIUM 1.5 mg/dL (1.8-2.4); POTASSIUM,K 4.2 mmol/L (3.5-5.1); PROTEIN TOTAL,TP 7.8 g/dL (6.4-8.2)
[2023-12-17] MEDS: Magnesium Sulfate/Water Premix 2 GM in Premix Bag 1 BAG IV ONE (11:59)
[2023-12-17 12:41] VITALS: BP 145/93; PULSE 82
== END 2023-12-17 12:41 | disposition home or self-care (01) ==
LOC: MW.ED 09:58
DX: G43.909 Migraine, unspecified, not intractable, without status migrainosus (principal); E83.42 Hypomagnesemia; R11.0 Nausea; I10 Essential (primary) hypertension; K21.9 Gastro-esophageal reflux disease without esophagitis; E66.9 Obesity, unspecified; E11.9 Type 2 diabetes mellitus without complications; F17.210 Nicotine dependence, cigarettes, uncomplicated; Z79.899 Other long term (current) drug therapy; Z68.37 Body mass index [BMI] 37.0-37.9, adult
CPT/HCPCS: 36415; 80053; 83690; 83735; 85025; 96361; 96365; 96375; 99284; J0780; J1200; J2405; J3475; J7030

== ENCOUNTER 2024-07-20 21:40 | Emergency (ER) | payer BC, OTHER ==
[2024-07-20] MEDS ORDERED: Sodium Chloride 0.9% 2.5 ML Syringe FLUSH PRN (23:06)
[2024-07-20] MEDS ORDERED: Sodium Chloride 0.9% 10 ML Syringe FLUSH PRN (23:06)
[2024-07-21] MEDS: Sodium Chloride 0.9% 1,000 ML IV ONE (01:11)
[2024-07-21] MEDS: Ketorolac 30 MG/ML SDV IVPUSH ONE (01:12)
[2024-07-21] MEDS: Prochlorperazine 10 MG/2 ML SDV IVPUSH ONE (01:14)
[2024-07-21] MEDS: diphenhydrAMINE 50 MG/ML SDV IVPUSH ONE (01:14)
[2024-07-21] MEDS: Ondansetron 4 MG/2 ML SDV IVPUSH ONE (01:22)
[2024-07-21 01:25] LABS: BASOPHILS ABSOLUTE AUTO 0.05 K/uL (0.00-0.20); BASOPHILS PERCENT AUTO 0.4 % (0.0-1.0); EOSINOPHILS ABSOLUTE AUTO 0.62 K/uL (0.00-0.45); EOSINOPHILS PERCENT AUTO 5.1 % (0.0-6.0); HEMATOCRIT 39.6 % (37.0-47.0); HEMOGLOBIN 12.9 g/dL (12.0-16.0); IMMATURE GRAN ABSOLUTE AUTO 0.03 K/uL (0.00-0.05); IMMATURE GRAN PERCENT AUTO 0.2 % (0.0-0.4); LYMPHOCYTES ABSOLUTE AUTO 3.85 K/uL (1.00-4.80); LYMPHOCYTES PERCENT AUTO 31.4 % (24.0-44.0); MEAN CORPUSCULAR HEMOGLOBIN 27.7 pg (28.0-32.0); MEAN CORPUSCULAR HGB CONC 32.6 g/dL (32.0-36.0); MEAN PLATELET VOLUME 10.7 fL (9.4-12.3); MONOCYTES ABSOLUTE AUTO 0.94 K/uL (0.00-0.80); MONOCYTES PERCENT AUTO 7.7 % (0.0-8.0); NEUTROPHILS ABSOLUTE AUTO 6.76 K/uL (1.80-7.70); NEUTROPHILS PERCENT AUTO 55.2 % (41.0-71.0); PLATELET COUNT,PLT 318 K/uL (150-400); RED BLOOD CELL COUNT 4.66 M/uL (4.10-5.30); WHITE BLOOD CELL COUNT,WBC 12.25 K/uL (3.9-11.3)
[2024-07-21 02:06] LABS: A/G RATIO 0.9 (0.9-1.6); ALBUMIN 3.7 g/dL (3.4-5.0); BILIRUBIN TOTAL 0.3 mg/dL (0.2-1.0); CALCIUM 9.6 mg/dL (8.5-10.1); CREATININE 0.9 mg/dL (0.6-1.0); EST CRCL DRUG DOSING (CG) 54.55 mL/min; POTASSIUM,K 3.8 mmol/L (3.5-5.1); PROTEIN TOTAL,TP 7.7 g/dL (6.4-8.2)
[2024-07-21 02:29] VITALS: BP 172/85; PULSE 86
== END 2024-07-21 02:29 | disposition home or self-care (01) ==
LOC: MW.ED 21:40
DX: G43.909 Migraine, unspecified, not intractable, without status migrainosus (principal); E78.00 Pure hypercholesterolemia, unspecified; I10 Essential (primary) hypertension; K21.9 Gastro-esophageal reflux disease without esophagitis; E11.9 Type 2 diabetes mellitus without complications; F17.210 Nicotine dependence, cigarettes, uncomplicated; Z75.3 Unavailability and inaccessibility of health-care facilities; Z79.84 Long term (current) use of oral hypoglycemic drugs; Z79.899 Other long term (current) drug therapy
CPT/HCPCS: 36415; 80053; 85025; 96361; 96374; 96375; 99284; J0780; J1100; J1200; J1885; J2405; J7030; 99283

== ENCOUNTER 2024-08-04 13:40 | Emergency (ER) | payer BC | END 2024-08-04 14:17 | disposition left against medical advice (07) | LOC: MW.ED 13:40 | DX: Z53.21 Procedure and treatment not carried out due to patient leaving prior to being seen by health care provider (principal) ==